=== PATIENT | female | born 1970 | race Caucasian/White ===

== ENCOUNTER 2019-02-09 19:36 | Emergency (ER) | payer MEDICAID ==
[~2019-02-09] VITALS: Ht 162.6 cm; Wt 88.0 kg
[~2019-02-09 19:36] MED LIST: CLON-371 PO; DIPH-423 PO; FLUO20CA39 PO; HYDR-4383 PO; ONDA4TAB6 PO; ONDA8TAB9 PO; PRED10TA PO
[2019-02-09 19:40] VITALS: BP 147/78
[2019-02-09] MEDS ORDERED: AMOX500C2 PO (22:54)
[2019-02-09] MEDS ORDERED: HYDR-3965 PO (22:54)
[2019-02-09] MEDS ORDERED: amoxicillin 250mg capsule PO ONE (22:55)
[2019-02-09] MEDS ORDERED: HYDROcodone/acetaminophen 5mg/325mg tablet PO ONE (22:55)
[2019-02-09] MEDS ORDERED: ondansetron 4mg rapidly disintigrating tab PO ONE (22:55)
== END 2019-02-09 23:23 | disposition home or self-care (01) ==
LOC: ER 19:37
DX: K08.89 Other specified disorders of teeth and supporting structures (principal); F17.200 Nicotine dependence, unspecified, uncomplicated; Z88.8 Allergy status to other drugs, medicaments and biological substances; Z79.899 Other long term (current) drug therapy
CPT/HCPCS: 99284

== ENCOUNTER 2023-04-01 23:57 | Emergency (ER) | payer MEDICAID, OTHER ==
[~2023-04-01] VITALS: Ht 162.6 cm; Wt 81.8 kg
[2023-04-02] MEDS ORDERED: ketorolac tromethamine 15mg/ml inj. IM STA (00:29)
[2023-04-02] MEDS ORDERED: ketorolac trometh. 30mg/ml inj. IM STA (00:39)
[2023-04-02 00:55] LABS: URINE HCG NEGATIVE (NEG)
[2023-04-02 00:57] LABS: CLARITY,URINE CLEAR (Clear); COLOR,URINE YELLOW (Yellow); GLUCOSE, URINE NEGATIVE (Neg); KETONES,URINE NEGATIVE (Neg); LEUKOCYTE ESTERASE ,URINE NEGATIVE (Neg); NITRITES, URINE NEGATIVE (Neg); OCCULT BLOOD,URINE NEGATIVE (Neg); PH,URINE 5.5 (4.8-8.0); PROTEIN,URINE NEGATIVE (Neg); UROBILINOGEN,URINE 0.2 E.U/dL (0.2-1.0)
[2023-04-02 01:08] LABS: BASOPHILS # (AUTO) 0.1 X10'3 (0-0.2); BASOPHILS % (AUTO) 0.6 % (0-1); EOSINOPHILS # (AUTO) 0.1 X10'3 (0-0.9); EOSINOPHILS % (AUTO) 0.9 % (0-6); HEMOGLOBIN 14.1 g/dl (12.0-16.0); LYMPHOCYTES % (AUTO) 17.5 % (21-51); MEAN CORPUSCULAR HEMOGLOBIN 28.7 PG (27.0-31.0); MEAN CORPUSCULAR HGB CONC 34.5 g/dL (33.0-36.5); MEAN CORPUSCULAR VOLUME 83.3 FL (78-98); MEAN PLATELET VOLUME 7.4 FL (7.4-10.4); MONOCYTES # (AUTO) 0.7 X10'3 (0-0.9); MONOCYTES % (AUTO) 6.1 % (2-12); NEUTROPHILS # (AUTO) 8.5 X10'3 (1.8-7.7); NEUTROPHILS % (AUTO) 74.9 % (42-75); PLATELET COUNT 269 X10'3 (140-440); RED BLOOD COUNT 4.93 X10'6 (4.20-5.60); RED CELL DISTRIBUTION WIDTH 13.3 % (11.5-14.5); WHITE BLOOD COUNT 11.3 X10'3 (4.5-11.0)
[2023-04-02 01:09] VITALS: BP 123/92
[2023-04-02 01:18] LABS: ALANINE AMINOTRANSFERASE 31 U/L (12-78); ALKALINE PHOSPHATASE 92 IU/L (46-116); ANION GAP 12 (8-16); ASPARTATE AMINO TRANSFERASE 27 U/L (10-37); BILIRUBIN,TOTAL 0.5 MG/DL (0.1-1.0); BLOOD UREA NITROGEN 9 MG/DL (7-18); CALCIUM 8.7 MG/DL (8.5-10.1); CHLORIDE 102 MMOL/L (99-107); CREATININE 0.75 MG/DL (0.40-0.90); GLUCOSE 94 MG/DL (70-104); LIPASE 74 U/L (73-393); POTASSIUM 3.8 MMOL/L (3.5-5.1); SODIUM 138 MMOL/L (135-145); TOTAL CARBON DIOXIDE 23.8 MMOL/L (24-32); TOTAL PROTEIN 8.2 G/DL (6.4-8.2); eGFR 80 ML/MIN
[2023-04-02 01:19] LABS: UA COLLECTION TYPE CLN CATCH MIDSTREAM
[2023-04-02] MEDS ORDERED: orphenadrine citrate 60mg/2ml inj. IM ONE (02:15)
[2023-04-02] MEDS ORDERED: cyclobenzaprine 10mg tablet PO ONE (02:20)
[2023-04-02] MEDS ORDERED: acetaminophen 1,000mg/100ml IV 100 ML IV ONE (02:20)
--- NOTE | 2023-04-02 02:22 | NUR ---
pt in [place]
[2023-04-02] MEDS ORDERED: CYCL-1 PO (03:17)
== END 2023-04-02 03:25 | disposition home or self-care (01) ==
LOC: ER 23:57
DX: M54.50 Low back pain, unspecified (principal); F41.9 Anxiety disorder, unspecified; Z98.890 Other specified postprocedural states; Z72.89 Other problems related to lifestyle; Z88.8 Allergy status to other drugs, medicaments and biological substances; Z79.899 Other long term (current) drug therapy
CPT/HCPCS: 36415; 74176; 80053; 81003; 81025; 83690; 84145; 85025; 96372; 96374; 99285; J0131; J1885; J7030